=== PATIENT | male | born 1990 | race Caucasian/White ===

== ENCOUNTER 2018-08-20 15:16 | Emergency (ER) | payer MEDICAID ==
[~2018-08-20] VITALS: Ht 167.6 cm; Wt 78.9 kg
[2018-08-20 15:21] VITALS: Ht 167.6 cm; Wt 78.9 kg
[2018-08-20 18:10] VITALS: BP 136/96
== END 2018-08-20 18:10 | disposition short-term general hospital (02) ==
LOC: ED 15:16
DX: T26.11XA Burn of cornea and conjunctival sac, right eye, initial encounter (principal); X10.2XXA Contact with fats and cooking oils, initial encounter; Y93.89 Activity, other specified; Y92.090 Kitchen in other non-institutional residence as the place of occurrence of the external cause; Y99.8 Other external cause status
CPT/HCPCS: 90715; J2270; J7030